=== PATIENT | female | born 1980 | race Caucasian/White ===

== ENCOUNTER → 2025-01-15 13:19 | Outpatient (BNVA) | payer MEDICAID, SELFPAY | PROVIDERS: Visit Provider Orthopaedic Surgery | DX: Z01.818 Encounter for other preprocedural examination (principal); M54.41 Lumbago with sciatica, right side; G89.29 Other chronic pain; M54.9 Dorsalgia, unspecified | CPT/HCPCS: 36415; 72110; 80053; 81001; 85025; 99204 ==

== ENCOUNTER 2025-02-04 08:45 | Day surgery (SDC) | payer MEDICAID, SELFPAY ==
[2025-02-04] VITALS (16 sets, daily range): BP systolic 112–134; BP diastolic 57–94; PULSE 72–83; RESP 16–20; TEMP 36.1–36.6; O2SAT 93–98; BMI 32.3
[2025-02-04 09:04] LABS: OR HCG Qualitative Urine Negative (Negative)
[2025-02-04] MEDS: sodium chloride 0.9% 1,000 ML 30 ML IV (09:28)
--- NOTE | 2025-02-04 10:59 | ANES.PREANE2 ---
Pre-Anesthetic Assessment Height/Weight: Height 4 ft 10 in Weight 155 lb Temp Pulse Resp BP Pulse Ox O2 Del Method 97.9 F 83 16 118/76 98 Room Air 02/04/25 09:13 02/04/25 09:13 02/04/25 09:13 02/04/25 09:13 02/04/25 09:13 02/04/25 09:13 Preop Diagnosis: Lumbar stenosis with neurogenic claudication Operation Date: 02/04/25 11:20 Proposed Procedures p Implantation of Neurostimulator Paddle(Not Applicable) - Anselmo Sterling DO s Insertion Neurostimulator generator(Not Applicable) - Anselmo Sterling DO Was Beta Shyla taken within 24 hours: N/A Was Clonidine taken within 24 hours: N/A Last intake: Intake Last Liquid Date 02/03/25 Last Liquid Time 22:30 Last Solid Date 02/03/25 Last Solid Time 20:30 Social Tobacco and No alcohol Exam alert, oriented x 3, clear to auscultation bilaterally and regular rate & rhythm Airway Mallampati: Class III Comments: Comments: Edentulous, broad-based neck Anesthetic Plan ASA status: 3 Anesthesia: General Other: No prior issues with anesthesia 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, severe hearing loss History of GERD on omeprazole Current smoker Denies any cardiac issues Labs reviewed and acceptable for procedure Plan for general anesthesia Medications/Allergies Home Medications ?Medication ?Instructions ?Recorded ?Confirmed ?Last Taken ?Type alendronate 70 mg tablet 70 mg PO .WEEKLY 01/31/25 02/04/25 02/03/25 History ascorbic acid (vitamin C) 1,000 mg 1,000 mg PO DAILY 01/31/25 02/04/25 02/03/25 History tablet (Vitamin C) atorvastatin 40 mg tablet 40 mg PO DAILY 01/31/25 02/04/25 02/03/25 History cholecalciferol (vitamin D3) 50 50 mcg PO BID 01/31/25 02/04/25 02/03/25 History mcg (2,000 unit) capsule (Vitamin D3) fenofibrate 160 mg tablet 160 mg PO DAILY 01/31/25 02/04/25 02/03/25 History hydroxyzine HCl 10 mg tablet 20 mg PO DAILY 01/31/25 02/04/25 02/03/25 History loratadine 10 mg tablet (Claritin) 10 mg PO DAILY 01/31/25 02/04/25 02/03/25 History meloxicam 15 mg tablet 15 mg PO DAILY 01/31/25 02/04/25 02/03/25 History methocarbamol 750 mg tablet 750 mg PO DAILY 01/31/25 02/04/25 02/03/25 History gqvkmbqi-mwf-sfyel ac 400 1 tab PO DAILY 01/31/25 02/04/25 02/03/25 History mcg-calcium carb 500 mg-vit K1 20 mcg tablet (Women's 50 Plus Multivitamin) omeprazole 40 mg capsule,delayed 40 mg PO DAILY 01/31/25 02/04/25 02/03/25 History release trazodone 150 mg tablet 150 mg PO DAILY 01/31/25 02/04/25 02/03/25 History Allergies Allergy/AdvReac Type Severity Reaction Status Date / Time Penicillins Allergy Unknown Verified 01/31/25 09:14 Current Medications Generic Name Dose Route Start Last Admin Trade Name Freq PRN Reason Stop Dose Admin Sodium Chloride 1,000 mls @ 30 mls/hr 02/04/25 09:00 02/04/25 09:28 Sodium Chloride 0.9% IV 02/05/25 08:59 30 mls/hr .Q24H SERENA Administration PFSH Anesthesia Social History Smoking and tobacco/nicotine status: former use of tobacco/nicotine
--- NOTE | 2025-02-04 11:17 | W.PM.OPSUD ---
Surgery/Procedure H&P Update DATE OF PROCEDURE: February 04, 2025 DATE H&P PERFORMED: 01/15/25 H&P UPDATE INFORMATION: I have reviewed H&P completed within last 30 days, I have examined patient prior to procedure and No changes to prior documentation PREOP DIAGNOSIS: Lumbar stenosis with neurogenic claudication PLANNED PROCEDURE: Operation Date: 02/04/25 11:20 Proposed Procedures p Implantation of Neurostimulator Paddle(Not Applicable) - Anselmo Sterling DO s Insertion Neurostimulator generator(Not Applicable) - Anselmo Sterling DO
[2025-02-04] MEDS: clindamycin 600 MG/50 ML PREMIX 100 MG IV (11:28)
[2025-02-04] MEDS: lidocaine-epi 1% 20 mL INJ (12:20)
[2025-02-04] MEDS: VANCOMYCIN ADD-Vantage 1,000 MG VIAL 1000 MG XX (12:26)
--- NOTE | 2025-02-04 13:25 | PM.OP ---
Operative Report Date of procedure: February 04, 2025 Pre-op diagnosis: Lumbar stenosis with neurogenic claudication Post-op diagnosis: same Procedure done: 1. Neurostimulator paddle placement 2. Neurostimulator generator/battery placement Surgeon: Anselmo Sterling DO Estimated blood loss (mL): 15 Procedure: 1. Neurostimulator paddle placement 2. Neurostimulator generator/battery placement Patient brought to the operative suite after undergoing anesthesia was placed in the prone position. All areas impingement well-padded. Attention was first brought to the neuro stimulator position first patient was prepped and draped normal sterile fashion. Skin incision was made over the T10-11 level. Periosteal dissection was made to the transverse processes of T10-T11 bilaterally. With retractors placed. The interspinous ligament was taken down. Part of the lamina and facets were taken down medially. Ligament flavum was taken down. The trial was then passed. And then the actual neurostimulator paddle was passed was passed up through the vertebral body of 8. The wires were then sutured to the spinous process of T11. Next attention was brought to the battery Skin incision is made over the right flank. Fat pocket was made. The wire passer was then passed from the battery pouch to the location where the neurostimulator was wires were passed underneath the skin. The wire was then placed into the battery. And the battery was placed into the pocket on the right flank. The cement was found to be working. Wounds were closed with 0 Vicryl 2-0 Vicryl and Monocryl suture. Sterile dressings were applied patient is transferred to the PACU in stable condition.
--- NOTE | 2025-02-04 13:39 | XR_ITS ---
WS: [id number] C-ARM RADIOGRAPHS THORACIC SPINE; 3 IMAGES HISTORY: or pic, spinal stimulator COMPARISON: None available. Intraoperative imaging during spinal stimulator placement. Electrodes project over the midthoracic spine. XR/XR thoracic spine 2V [id number] IMPRESSION: Intraoperative imaging during spinal stimulator placement.
[2025-02-04] MEDS: fentaNYL 50 mcg/mL INJ 2mL IVP ×2 (13:42→13:48)
[2025-02-04] MEDS: HYDROcodone-acetaminophen 5-325 mg Tablet 1 TAB PO (14:40)
--- NOTE | 2025-02-04 15:05 | ANE.PACU2 ---
Inpatient post-anesthesia follow up: Airway intact: Yes Vital signs: Temperature 98 F Pulse Rate 76 Respiratory Rate 17 Blood Pressure 112/79 Pulse Oximetry 95 Oxygen Delivery Me thod Room Air Oxygen Flow Rate Fraction of Inspir ed Oxygen Hydration adequate: Yes Nausea and vomiting: No Pain level: 2
== END 2025-02-04 15:40 | disposition home or self-care (01) ==
PROVIDERS: Student in an Organized Health Care Education/Training Program; Visit Provider Orthopaedic Surgery
PROC: (CPT 63655; principal; 2025-02-04 11:20)
PROC: (CPT 63685; 2025-02-04 11:20)
DX: M48.062 Spinal stenosis, lumbar region with neurogenic claudication (principal); K21.9 Gastro-esophageal reflux disease without esophagitis; F17.200 Nicotine dependence, unspecified, uncomplicated
CPT/HCPCS: 63685; 63655; 72070; 76000; 81025; C1713; J1100; J2250; J2405; J2704; J3010; J3370; J3490; J7030; J9999